=== PATIENT | male | born 1995 | race Caucasian/White ===

== ENCOUNTER 2018-02-04 16:13 | Emergency (ER) | payer OTHER ==
[2018-02-04 16:30] VITALS: BP 130/79; PULSE 86; RESP 18; TEMP 98.1; O2SAT 100
[2018-02-04] MEDS ORDERED: Naproxen 500 MG TAB PO STA (16:42)
[2018-02-04] MEDS ORDERED: Naproxen 500 MG TAB PO ONE (16:58)
--- NOTE | 2018-02-04 17:14 | ED PDOC ---
Lower Extremity Pain/Injury Time Seen by Provider: 02/04/18 16:37 Chief Complaint (Nursing): Lower Extremity Problem/Injury Chief Complaint (Provider): Left ankle injury History Per: Patient History/Exam Limitations: no limitations Onset/Duration Of Symptoms: Days (x5) Current Symptoms Are (Timing): Still Present Additional Complaint(s): 22 year old male presented to ED complaining of twisting left ankle on sunday with moderate swelling and pain noted. Patient reports he had gone to the clinic who sent patient to the ED for an orthopedist evaluation. PCP: none provided Past Medical History Reviewed: Historical Data, Nursing Documentation, Vital Signs Vital Signs: Last Vital Signs Temp 98.1 F 02/04/18 16:27 Pulse 86 02/04/18 16:27 Resp 18 02/04/18 16:27 BP 130/79 02/04/18 16:27 Pulse Ox 100 02/04/18 16:27 - Medical History PMH: No Chronic Diseases - Surgical History Surgical History: No Surg Hx - Family History Family History: States: Unknown Family Hx - Social History Current smoker - smoking cessation education provided: No Alcohol: None Drugs: Denies - Immunization History Hx Tetanus Toxoid Vaccination: No Hx Influenza Vaccination: Yes Hx Pneumococcal Vaccination: No - Home Medications Home Medications: Ambulatory Orders Medication Instructions Recorded Bacitracin OINT 1 applic TP TID #45 g 06/11/17 Naproxen 375 mg PO Q8 PRN #21 tablet 02/04/18 - Allergies Allergies/Adverse Reactions: Allergies Allergy/AdvReac Type Severity Reaction Status Date / Time No Known Allergies Allergy Verified 02/04/18 16:27 Review of Systems ROS Statement: Except As Marked, All Systems Reviewed And Found Negative Musculoskeletal: Positive for: Other (left ankle pain) Physical Exam - Reviewed Nursing Documentation Reviewed: Yes Vital Signs Reviewed: Yes - Physical Exam Appears: Positive for: Non-toxic, No Acute Distress Head Exam: Positive for: ATRAUMATIC, NORMAL INSPECTION, NORMOCEPHALIC Skin: Positive for: Normal Color, Warm, Dry Eye Exam: Positive for: Normal appearance Neck: Positive for: Normal, Painless ROM Extremity: Positive for: Normal ROM, Tenderness (bilateral malleolar tenderness) , Swelling (bilateral malleolar swelling). Negative for: Other (foot and knee tenderness) - ECG O2 Sat by Pulse Oximetry: 100 (RA) Pulse Ox Interpretation: Normal - Progress ED Course And Treament: XRY OF LEFT ANKLE: NO FX PLACED IN AIR SPLINT AND CRUTCHES NAPROXEN 500MG Medical Decision Making Medical Decision Making: Initial Impression: left ankle pain Initial Plan: Naproxen X-ray left ankle Scribe Attestation: Documented by Joey Schultz acting as a scribe for Obed HANNON. Provider Scribe Attestation: All medical record entries made by the Scribe were at my direction and personally dictated by me. I have reviewed the chart and agree that the record accurately reflects my personal performance of the history, physical exam, medical decision making, and the department course for this patient. I have also personally directed, reviewed, and agree with the discharge instructions and disposition. Disposition - Clinical Impression Clinical Impression: Ankle sprain - Patient ED Disposition Is Patient to be Admitted: No - Disposition Referrals: Podiatry Clinic [Outside] Eri Stapleton DPM [Staff Provider] - Inocencio Kingsley MD [Staff Provider] - Disposition: Routine/Home Disposition Time: 17:21 Condition: FAIR Prescriptions: Naproxen 375 mg PO Q8 PRN #21 tablet PRN Reason: Pain, Moderate (4-7) Instructions: Ankle Sprain (DC) Forms: [employer] ([place]), [facility] ED School/Work Excuse
--- NOTE | 2018-02-04 17:16 | RAD ---
PROCEDURE: Left Ankle Radiographs. HISTORY: LEFT ANKLE INJURY COMPARISON: None FINDINGS: BONES: Normal. No fracture. JOINTS: Normal. No osteoarthritis. Ankle mortise maintained. Talar dome intact SOFT TISSUES: Normal. OTHER FINDINGS: None. IMPRESSION: No acute findings related to/accounting for the clinical presentation.
== END 2018-02-04 17:31 | disposition home or self-care (01) ==
LOC: H.ER 16:13
DX: S93.402A Sprain of unspecified ligament of left ankle, initial encounter (principal); X50.9XXA Other and unspecified overexertion or strenuous movements or postures, initial encounter; Y99.0 Civilian activity done for income or pay